=== PATIENT | male | born 1975 | race Caucasian/White ===

== ENCOUNTER → 2025-01-12 07:20 | Outpatient (REF) | payer OTHER, SELFPAY | LOC: RAD 07:20 | DX: R16.1 Splenomegaly, not elsewhere classified (principal); R10.12 Left upper quadrant pain; K59.1 Functional diarrhea | CPT/HCPCS: 74177; Q9967 ==

== ENCOUNTER → 2025-01-13 07:55 | Outpatient (REF) | payer OTHER, SELFPAY ==
[2025-01-13 09:17] LABS: % Basophils 0.4 % (0-2); % Eosinophils 1.7 % (0-6); % Immature Granulocytes 0.3 % (0-0.5); % Lymphocytes 18.4 % (20.5-51.1); % Monocytes 8.8 % (1.7-9.3); % Neutrophils 70.4 % (42.2-75.2); Absolute Eosinophils 0.1 10^3/uL (0-0.7); Absolute Lymphocytes 1.4 10^3/uL (1.2-3.4); Absolute Monocytes 0.7 10^3/uL (0.1-0.6); Absolute Neutrophils 5.5 10^3/uL (1.4-6.5); Hematocrit 43.6 % (39.0-52.0); Hemoglobin 15.1 g/dL (13.0-18.0); Mean Corp Hgb Conc. 34.6 g/dL (33.0-37.0); Mean Corpuscular Volume 83.8 fL (80.0-94.0); Mean Platelet Volume 12.1 fL (7.4-10.4); Nucleated Red Blood Cells % 0 % (-); Platelet Count 172 10^3/uL (130-400); Red Cell Dist. Width 12.5 % (11.5-14.5); White Blood Cell Count 7.8 10^3/uL (4.8-10.8)
[2025-01-13 09:40] LABS: Urine Albumin Negative (Neg - Trace); Urine Bilirubin Negative (Negative); Urine Character Clear (Clear); Urine Color Yellow; Urine Glucose Negative (Negative); Urine Ketone Negative (Negative); Urine Leukocyte Negative (Negative); Urine Nitrite Negative (Negative); Urine Occult Blood Negative (Negative); Urine Specific Gravity 1.005 (<1.030); Urine Urobilinogen Negative (Neg - 1+)
[2025-01-13 09:48] LABS: ALT (SGPT) 31 U/L (0-50); AST (SGOT) 31 U/L (17-59); Albumin 4.8 g/dl (3.5-5.0); Alkaline Phosphatase 62 U/L (38-126); Amylase 61 U/L (30-110); Blood Urea Nitrogen 17 mg/dl (9-20); Calcium 10.1 mg/dl (8.4-10.2); Carbon Dioxide 30 mmol/L (22-30); Chloride 103 mmol/L (98-107); Cholesterol 258 mg/dl (50-199); Glucose 97 mg/dl (70-99); HDL Cholesterol 70 mg/dl; LDL Cholesterol, Calculated 174 mg/dl; Lipase 25 U/L (23-300); Potassium 4.7 mmol/L (3.5-5.1); Sodium 139 mmol/L (135-145); Total Cholesterol 258 mg/dl (50-199); Total Protein 7.8 g/dl (6.3-8.2); Triglyceride 74 mg/dl (10-149); Very Low Density Lipoprotein 14 mg/dl (0-30); eGFR > 60.00
[2025-01-13 10:18] LABS: TSH Reflex To Free T4 2.02 uIU/ml (0.47-4.68)
[2025-01-15 16:27] LABS: Milk (Cow's) <0.10 kU/L (<=0.34)
[2025-01-15 16:28] LABS: Alternaria tenuis <0.10 kU/L (<=0.34); Aspergillus fumigatus <0.10 kU/L (<=0.34); Bermuda Grass 0.57 kU/L (<=0.34); Birch Tree 0.73 kU/L (<=0.34); Box Elder/Maple Tree 0.79 kU/L (<=0.34); Cat Epithelium/Dander <0.10 kU/L (<=0.34); Common Pigweed 0.45 kU/L (<=0.34); Common/Short Ragweed 1.96 kU/L (<=0.34); Cottonwood Tree 0.33 kU/L (<=0.34); Dermatophagoides farinae <0.10 kU/L (<=0.34); Dermatophagoides pteronyssinus <0.10 kU/L (<=0.34); Dog Dander <0.10 kU/L (<=0.34); Elm Tree 0.55 kU/L (<=0.34); German Cockroach <0.10 kU/L (<=0.34); Hormodendrum <0.10 kU/L (<=0.34); IgE 110 kU/L (<=214); Mountain Cedar Tree 0.18 kU/L (<=0.34); Mouse Epithelium <0.10 kU/L (<=0.34); Mucor racemosus <0.10 kU/L (<=0.34); Mugwort Weed 1.29 kU/L (<=0.34); Oak Tree 0.61 kU/L (<=0.34); Penicillium notatum <0.10 kU/L (<=0.34); Sheep Sorrel Weed 0.42 kU/L (<=0.34); Sycamore Tree 0.46 kU/L (<=0.34); Timothy Grass 0.12 kU/L (<=0.34); Walnut Tree 0.79 kU/L (<=0.34); White Ash Tree 0.94 kU/L (<=0.34); White Mulberry Tree <0.10 kU/L (<=0.34)
[2025-01-15 16:29] LABS: PSA Total 0.5 ng/mL (0.0-4.0)
== END ==
LOC: REG 07:55
DX: R11.2 Nausea with vomiting, unspecified (principal); R10.9 Unspecified abdominal pain; R16.1 Splenomegaly, not elsewhere classified; R10.12 Left upper quadrant pain; K59.1 Functional diarrhea; K90.49 Malabsorption due to intolerance, not elsewhere classified; Z12.5 Encounter for screening for malignant neoplasm of prostate
CPT/HCPCS: 36415; 80053; 80061; 81003; 82150; 82465; 82785; 83690; 83718; 84153; 84154; 84443; 85025; 86003

== ENCOUNTER 2025-06-27 06:17 | Day surgery (SDC) | payer OTHER, SELFPAY | END 2025-06-27 15:39 | disposition home or self-care (01) | LOC: GI 06:17 | PROVIDERS: ATTENDING PHYSICIAN Internal Medicine Gastroenterology | DX: Z12.11 Encounter for screening for malignant neoplasm of colon (principal); K64.8 Other hemorrhoids; K57.30 Diverticulosis of large intestine without perforation or abscess without bleeding; D12.8 Benign neoplasm of rectum | CPT/HCPCS: 45385; 88305 ==